=== PATIENT | female | born 1965 | race Caucasian/White ===

== ENCOUNTER 2016-08-06 01:49 | Observation (INO) | payer OTHER ==
[~2016-08-06] VITALS: Ht 162.6 cm; Wt 117.5 kg
[2016-08-06] VITALS (8 sets, daily range): BP systolic 119–157; BP diastolic 64–93
[2016-08-06] MEDS ORDERED: ASPIRIN 81 MG CHEW (CHILDREN'S ASA) PO ONE (02:00)
[2016-08-06 02:28] LABS: BASOPHILS # (AUTO) 0.1 10^3/uL (0.0-0.1); BASOPHILS % (AUTO) 1 % (0-10); EOSINOPHILS # (AUTO) 0.3 10^3/uL (0.0-0.3); EOSINOPHILS % (AUTO) 2 % (0-10); LYMPHOCYTES # (AUTO) 4.4 X 10^3 (1.0-4.0); LYMPHOCYTES % (AUTO) 33 % (12-44); MEAN CORPUSCULAR HEMOGLOBIN 28 PG (25-34); MEAN CORPUSCULAR HGB CONC 33 G/DL (32-36); MEAN CORPUSCULAR VOLUME 86 FL (80-99); MEAN PLATELET VOLUME 11.1 FL (7.4-10.4); MONOCYTES # (AUTO) 0.7 X 10^3 (0.0-1.0); MONOCYTES % (AUTO) 5 % (0-12); NEUTROPHILS # (AUTO) 7.7 X 10^3 (1.8-7.8); NEUTROPHILS % (AUTO) 59 % (42-75); PLATELET COUNT 324 10^3/uL (130-400); RED BLOOD COUNT 5.05 10^6/uL (4.35-5.85); WHITE BLOOD COUNT 13.2 10^3/uL (4.3-11.0)
[2016-08-06 02:40] LABS: INR 0.9 (0.8-1.4); PROTHROMBIN TIME PATIENT 11.9 SEC (12.2-14.7)
[2016-08-06 03:02] LABS: ANION GAP 12 MMOL/L (5-14); BLOOD UREA NITROGEN 6 MG/DL (7-18); BUN/CREATININE RATIO 9; CARBON DIOXIDE 24 MMOL/L (21-32); CHLORIDE 104 MMOL/L (98-107); GFR ESTIMATED > 60; GLUCOSE 147 MG/DL (70-105); POTASSIUM 3.8 MMOL/L (3.6-5.0); SODIUM 140 MMOL/L (135-145)
[2016-08-06 03:03] LABS: ALANINE AMINOTRANSFERASE 25 U/L (0-55); ALBUMIN 3.9 G/DL (3.2-4.5); ASPARTATE AMINO TRANSFERASE 17 U/L (5-34); BILIRUBIN,TOTAL 0.2 MG/DL (0.1-1.0); CALCIUM 8.9 MG/DL (8.5-10.1); MAGNESIUM 2.3 MG/DL (1.8-2.4); MYOGLOBIN SERUM 20.3 NG/ML (10.0-92.0)
[2016-08-06] MEDS ORDERED: RX-NITROGLYCERIN 0.4 MG TAB BTL 25'S SL ONE (03:30)
--- NOTE | 2016-08-06 04:24 | ED Chest Pain ---
General Chief Complaint: Chest Pain Stated Complaint: CP Nursing Triage Note: pt reports chest pain 9/10 starting approx 4 1/2 hours ago. pt reports worsening pain with activity. pt amb into exam room without difficulty Nursing Sepsis Screen: No Definite Risk Source: patient Exam Limitations: no limitations History of Present Illness Time seen by provider: 01:58 Initial Comments This 50-year-old woman presents to the emergency room with complaints of chest pain that started around 22:30. It is somewhat positional and seems to be worse when she gets up and moves around. She has felt flushed during episodes of chest pain. The pain is constant at a low level but worse with movement and exertion. She reports it as a sharp pain in the left lateral chest. It is sometimes worse with inspiration. She denies nausea or vomiting. She has some mild lightheadedness. She smokes tobacco and is a diabetic. She denies any prior history of heart disease. She has not seen a physician since Dr. Elizabeth closed her clinic. She denies cough or fever. Allergies and Home Medications Allergies Coded Allergies: No Known Drug Allergies (Unverified , 08/06/16) Home Medications No Active Prescriptions or Reported Meds Review of Systems Constitutional: no symptoms reported EENTM: No Symptoms Reported Respiratory: See HPI Cardiovascular: See HPI Gastrointestinal: No Symptoms Reported Genitourinary: No Symptoms Reported Musculoskeletal: no symptoms reported Skin: no symptoms reported Psychiatric/Neurological: No Symptoms Reported Endocrine: No Symptoms Reported Past Krgcopp-Wtujiq-Cwaydr Hx Patient Social History Alcohol Use: Denies Use Recreational Drug Use: No Smoking Status: Current Everyday Smoker Type Used: Cigarettes 2nd Hand Smoke Exposure: Yes Recent Foreign Travel: No Contact w/Someone Who Travel: No Recent Infectious Disease Expo: No Recent Hopitalizations: No Immunizations Up To Date Tetanus Booster (TDap): Unknown Seasonal Allergies Seasonal Allergies: Yes Surgeries HX Surgeries: No Respiratory Hx Respiratory Disorders: Yes (Tobaccoism) Cardiovascular Hx Cardiac Disorders: No Neurological Hx Neurological Disorders: No Reproductive System : No Hx Reproductive Disorders: No Sexually Transmitted Disease: No Genitourinary Hx Genitourinary Disorders: No Gastrointestinal Hx Gastrointestinal Disorders: No Musculoskeletal Hx Musculoskeletal Disorders: No Endocrine Hx Endocrine Disorders: Yes Endocrine Disorders: Diabetes, Non-Insulin dep HEENT HX ENT Disorders: No Cancer Hx Cancer: No Psychosocial Hx Psychiatric Problems: No Integumentary HX Skin/Integumentary Disorder: No Blood Transfusions Hx Blood Disorders: Yes (Chronic leukocytosis) Family Medical History Significant Family History: Diabetes, Stroke, Other Conditions/Hx (Parkinson's disease) Physical Exam Vital Signs Vital Sign - Last 12Hours 08/06/16 01:53 Temp 97.7 Pulse 103 Resp 22 B/P (MAP) 170/101 Pulse Ox 95 O2 Delivery Room Air Capillary Refill : Less Than 3 Seconds General Appearance: No Apparent Distress, WD/WN HEENT: PERRL/EOMI, Normal ENT Inspection, Pharynx Normal Neck: Normal Inspection Respiratory: Chest Non Tender, Lungs Clear, Normal Breath Sounds, No Accessory Muscle Use, No Respiratory Distress Cardiovascular: Regular Rate, Rhythm, No Edema, No Murmur, Normal Peripheral Pulses Gastrointestinal: Normal Bowel Sounds, Non Tender, Soft Extremity: Normal Capillary Refill, Normal Inspection, Non Tender, No Calf Tenderness, No Pedal Edema, Other (Negative Ever) Neurologic/Psychiatric: Alert, Oriented x3, No Motor/Sensory Deficits, Normal Mood/Affect, rental representative II-XII Norm as Tested Skin: Normal Color, Warm/Dry Progress/Results/Core Measures Results/Orders Lab Results Laboratory Tests Test 08/06/16 02:16 08/06/16 02:26 Range/Units White Blood Count 13.2 H 4.3-11.0 10^3/uL Red Blood Count 5.05 4.35-5.85 10^6/uL Hemoglobin 14.2 11.5-16.0 G/DL Hematocrit 43 35-52 % Mean Corpuscular Volume 86 80-99 FL Mean Corpuscular Hemoglobin 28 25-34 PG Mean Corpuscular Hemoglobin Concent 33 32-36 G/DL Red Cell Distribution Width 14.0 10.0-14.5 % Platelet Count 324 130-400 10^3/uL Mean Platelet Volume 11.1 H 7.4-10.4 FL Neutrophils (%) (Auto) 59 42-75 % Lymphocytes (%) (Auto) 33 12-44 % Monocytes (%) (Auto) 5 0-12 % Eosinophils (%) (Auto) 2 0-10 % Basophils (%) (Auto) 1 0-10 % Neutrophils # (Auto) 7.7 1.8-7.8 X 10^3 Lymphocytes # (Auto) 4.4 H 1.0-4.0 X 10^3 Monocytes # (Auto) 0.7 0.0-1.0 X 10^3 Eosinophils # (Auto) 0.3 0.0-0.3 10^3/uL Basophils # (Auto) 0.1 0.0-0.1 10^3/uL Prothrombin Time 11.9 L 12.2-14.7 SEC INR Comment 0.9 0.8-1.4 Activated Partial Thromboplast Time 34 24-35 SEC Sodium Level 140 135-145 MMOL/L Potassium Level 3.8 3.6-5.0 MMOL/L Chloride Level 104 98-107 MMOL/L Carbon Dioxide Level 24 21-32 MMOL/L Anion Gap 12 5-14 MMOL/L Blood Urea Nitrogen 6 L 7-18 MG/DL Creatinine 0.70 0.60-1.30 MG/DL Estimat Glomerular Filtration Rate > 60 BUN/Creatinine Ratio 9 Glucose Level 147 H 70-105 MG/DL Calcium Level 8.9 8.5-10.1 MG/DL Magnesium Level 2.3 1.8-2.4 MG/DL Total Bilirubin 0.2 0.1-1.0 MG/DL Aspartate Amino Transf (AST/SGOT) 17 5-34 U/L Alanine Aminotransferase (ALT/SGPT) 25 0-55 U/L Alkaline Phosphatase 85 40-136 U/L Myoglobin 20.3 10.0-92.0 NG/ML Troponin I < 0.30 <0.30 NG/ML Total Protein 7.0 6.4-8.2 G/DL Albumin 3.9 3.2-4.5 G/DL D-Dimer 0.47 0.00-0.49 UG/ML My Orders Orders - MELLISA GUTIERREZ MD Chest 1 View, Ap/Pa Only (08/06/16:52) Ekg Tracing (08/06/16:52) Cbc With Automated Diff (08/06/16:52) Magnesium (08/06/16:52) Cardiac Profile 1 (08/06/16:52) Comprehensive Metabolic Panel (08/06/16:52) Myoglobin Serum (08/06/16:52) Protime With Inr (08/06/16:52) Partial Thromboplastin Time (08/06/16:52) O2 (4/27/17 01:52) Monitor-Rhythm Ecg Trace Only (08/06/16 01:52) Lipid Panel (08/07/16 06:00) Aspirin Chewable Tablet (Baby Aspirin Ch (08/06/16 02:00) Saline Lock/Iv-Start (08/06/16 01:52) Fibrin Degradation Products (08/06/16 02:28) Rx-Nitroglycerin Sl Tabs (Rx-Nitrostat S (08/06/16 03:30) Medications Given in ED Current Medications Medications Dose Ordered Sig/Rafat Route Start Time Stop Time Status Last Admin Dose Admin Aspirin 324 mg ONCE ONCE PO 08/06/16 02:00 08/06/16 02:01 DC 08/06/16 02:40 324 MG Nitroglycerin 0.4 mg UD ONCE SL 08/06/16 03:30 08/06/16 03:31 DC 08/06/16 03:33 0.4 MG Vital Signs/I&O Vital Sign - Last 12Hours 08/06/16 08/06/16 01:53 02:00 Temp 97.7 Pulse 103 Resp 22 B/P (MAP) 170/101 Pulse Ox 95 96 O2 Delivery Room Air Room Air Blood Pressure Mean: 124 Progress Note : Progress Note Patient was given aspirin. Lab and imaging failed to reveal any abnormalities. A dose of nitroglycerin decreased her chest pain. Patient's presentation was mixed with features of typical and atypical chest pain. However, because of her significant risk factors with smoking and diabetes, admission was felt necessary for cardiac rule out. Patient was agreeable. Leukocytosis was noted on labs, but patient states this is chronic. ECG Initial ECG Impression Date: Aug 06, 2016 Initial ECG Impression Time: 01:58 Initial ECG Rate: 102 Initial ECG Rhythm: S.Tach Comment Sinus tachycardia with no ST elevation or depression. No abnormal intervals or axis deviation. Diagnostic Imaging Diagonstic Imaging: Xray Plain Films/CT/US/NM/MRI: chest Comments Single view chest x-ray viewed by me. Report not yet available. No acute abnormalities appreciated. Departure Communication Time/Spoke to Admitting Phy: 04:[address] Alvarado Time/Spoke to Consulting Physi: 04:05 Communication/Consulting Dr. Reynolds Impression Impression: Primary Impression: Chest pain Qualified Codes: R07.9 - Chest pain, unspecified Disposition: 09 ADMITTED INPATIENT Condition: Improved Decision to Admit Reason: Admit from ER (General) Decision to Admit/Date: Aug 06, 2016 Time/Decision to Admit Time: 04:00 Departure-Patient Inst. Referrals: NO,LOCAL PHYSICIAN (PCP) Primary Care Physician Scripts No Active Prescriptions or Reported Meds MELLISA GUTIERREZ MD Aug 06, 2016 04:24
[2016-08-06] MEDS ORDERED: morphine INJ 4 MG/ML 1 ML (VIAL/SYRINGE) IV PRN (06:00)
[2016-08-06] MEDS ORDERED: NITROGLYCERIN SUBLINGUAL 0.4 MG TAB (NITROSTAT) SL PRN (06:00)
--- NOTE | 2016-08-06 07:38 | Consultation-Cardiology ---
HPI-Cardiology Cardiology Consultation Date of Consultation 08/06/16 Date of Admission Indication: Chest pain HPI 50 years old lady with history of tobaccoism, obesity, was in her usual state of health until yesterday when she started having chest pain described it as dull achiness on the left side of her chest radiating up to her shoulder, waxing and waning continue to worsen, did not improve after laying down, came in late at night to the emergency room and reported improvement after sublingual nitroglycerin. Patient was seen this morning, her poor that she is feeling better. No pain at this point. No shortness of breath or diaphoresis no palpitation, syncope or near syncopal episode has been having mild pedal edema on and off. Denied feeling sleepy during the day or falling asleep easily. Does not know if she snores at night. Home Medications & Allergies Allergies: Coded Allergies: No Known Drug Allergies (Unverified , 08/06/16) Home Medication List Reviewed: Yes EZV-Goubiu-Yaovbh Hx Patient Social History Marital Status: single Employed/Student: employed Alcohol Use: Denies Use Recreational Drug Use: No Smoking Status: Current Everyday Smoker Type Used: Cigarettes 2nd Hand Smoke Exposure: Yes Recent Foreign Travel: No Recent Infectious Disease Expo: No Recent Hopitalizations: No Physical Abuse Screen: No Sexual Abuse: No Immunizations Up To Date Tetanus Booster (TDap): Unknown Past Medical History no known past medical or surgical history Family Medical History Family Medical Hx noncontributory, no known premature coronary artery disease or sudden cardiac Constitutional: no symptoms reported, see HPI EENTM: no symptoms reported, see HPI Respiratory: see HPI, No cough, No dyspnea on exertion, No hemoptysis, No orthopnea, No phlegm, No short of breath, No stridor, No wheezing, No other Cardiovascular: see HPI, chest pain, edema, No Hx of Intervention, No palpitations, No syncope, No vascular heart diseas, No other Gastrointestinal: no symptoms reported, see HPI Genitourinary: no symptoms reported, see HPI Musculoskeletal: no symptoms reported, see HPI Skin: no symptoms reported, see HPI Psychiatric/Neurological: No Symptoms Reported, See HPI Reviewed Test Results Reviewed Test Results Lab Laboratory Tests Test 08/06/16 02:16 08/06/16 02:26 Range/Units White Blood Count 13.2 H 4.3-11.0 10^3/uL Red Blood Count 5.05 4.35-5.85 10^6/uL Hemoglobin 14.2 11.5-16.0 G/DL Hematocrit 43 35-52 % Mean Corpuscular Volume 86 80-99 FL Mean Corpuscular Hemoglobin 28 25-34 PG Mean Corpuscular Hemoglobin Concent 33 32-36 G/DL Red Cell Distribution Width 14.0 10.0-14.5 % Platelet Count 324 130-400 10^3/uL Mean Platelet Volume 11.1 H 7.4-10.4 FL Neutrophils (%) (Auto) 59 42-75 % Lymphocytes (%) (Auto) 33 12-44 % Monocytes (%) (Auto) 5 0-12 % Eosinophils (%) (Auto) 2 0-10 % Basophils (%) (Auto) 1 0-10 % Neutrophils # (Auto) 7.7 1.8-7.8 X 10^3 Lymphocytes # (Auto) 4.4 H 1.0-4.0 X 10^3 Monocytes # (Auto) 0.7 0.0-1.0 X 10^3 Eosinophils # (Auto) 0.3 0.0-0.3 10^3/uL Basophils # (Auto) 0.1 0.0-0.1 10^3/uL Prothrombin Time 11.9 L 12.2-14.7 SEC INR Comment 0.9 0.8-1.4 Activated Partial Thromboplast Time 34 24-35 SEC Sodium Level 140 135-145 MMOL/L Potassium Level 3.8 3.6-5.0 MMOL/L Chloride Level 104 98-107 MMOL/L Carbon Dioxide Level 24 21-32 MMOL/L Anion Gap 12 5-14 MMOL/L Blood Urea Nitrogen 6 L 7-18 MG/DL Creatinine 0.70 0.60-1.30 MG/DL Estimat Glomerular Filtration Rate > 60 BUN/Creatinine Ratio 9 Glucose Level 147 H 70-105 MG/DL Calcium Level 8.9 8.5-10.1 MG/DL Magnesium Level 2.3 1.8-2.4 MG/DL Total Bilirubin 0.2 0.1-1.0 MG/DL Aspartate Amino Transf (AST/SGOT) 17 5-34 U/L Alanine Aminotransferase (ALT/SGPT) 25 0-55 U/L Alkaline Phosphatase 85 40-136 U/L Myoglobin 20.3 10.0-92.0 NG/ML Troponin I < 0.30 <0.30 NG/ML Total Protein 7.0 6.4-8.2 G/DL Albumin 3.9 3.2-4.5 G/DL D-Dimer 0.47 0.00-0.49 UG/ML Physical Exam Vital Signs Vital Sign - Last 12Hours 08/06/16 01:53 Temp 97.7 Pulse 103 Resp 22 B/P (MAP) 170/101 Pulse Ox 95 O2 Delivery Room Air Capillary Refill : Less Than 3 Seconds General Appearance: No Apparent Distress, WD/WN Eyes: Bilateral Eye EOMI, Bilateral Eye Normal Inspection, Bilateral Eye PERRL HEENT: PERRL/EOMI, TMs Normal, Normal ENT Inspection, Pharynx Normal Neck: Full Range of Motion, Normal Inspection, Non Tender, Supple, Carotid Bruit Respiratory: Chest Non Tender, Lungs Clear, Normal Breath Sounds, No Accessory Muscle Use, No Respiratory Distress Cardiovascular: Regular Rate, Rhythm, No Edema, No Gallop, No JVD, No Murmur, Normal Peripheral Pulses Gastrointestinal: Normal Bowel Sounds, No Organomegaly, No Pulsatile Mass, Non Tender, Soft Back: Normal Inspection, No CVA Tenderness, No Vertebral Tenderness Extremity: Normal Capillary Refill, Normal Inspection, Normal Range of Motion, Non Tender, No Calf Tenderness, No Pedal Edema Neurologic/Psychiatric: Alert, Oriented x3, No Motor/Sensory Deficits, Normal Mood/Affect Skin: Normal Color, Warm/Dry Lymphatic: No Adenopathy A/P-Cardiology Admission Diagnosis chest pain nonspecific etiology Obesity Tobaccoism Hypertension Assessment/Plan Chest pain nonspecific etiology atypical in presentation, EKG did not show any acute abnormality, cardiac enzymes are negative. Patient is admitted and started on aspirin, currently feeling better, we discussed the management plan I recommended exercise stress test and echocardiogram. Continue to monitor cardiac enzymes. Dyspnea on exertion, probably secondary to her body habitus, encouraged weight loss and exercise, planning to evaluate exercise stress test. BMI 44, high risk for underlying sleep apnea, consider sleep study as an outpatient Hypertension, transient, blood pressure is better, continue to monitor Tobaccoism, educated on smoking cessation Clinical Quality Measures AMI/AHF: ASA po Prior to arrival: No DVT/VTE Risk/Contraindication: Risk Factor Score Per Nursin RFS Level Per Nursing on Admit: 3=High RAVINDER MONTALVO MD Aug 06, 2016 07:38
--- NOTE | 2016-08-06 07:55 | Diagnostic Imaging Report ---
CLINICAL INDICATION: Patient with chest pain and shortness of breath. Patient is a smoker. EXAM: Portable chest x-ray upright view. COMPARISONS: None. FINDINGS: Lungs/pleura: There is slight increased density in the left lung base which may represent atelectasis versus infiltrate. There is no pneumothorax. There is no pleural effusion. Mediastinum: Unremarkable. Pulmonary vasculature: Unremarkable. Heart: Unremarkable. Bones/extrathoracic soft tissue: Unremarkable. IMPRESSION: 1. There is slight increased density in the left lung base, which may represent atelectasis versus infiltrate. Chest x-ray two views would better evaluate, if clinically necessary. Dictated by: Dictated on workstation # [id number]
[2016-08-06] MEDS ORDERED: ASPIRIN E.C. 325 MG (ECOTRIN) TABLET PO SCH (09:00)
--- NOTE | 2016-08-06 10:46 | Short Stay Summary-Hospitalist ---
HPI History of Present Illness: HPI/Chief Complaint CC: Chest Pain HPI: This is a 50 yoWF pt presented to ER w/chest pain. She smokes cigarettes and has DM. Pt has not seen a physician since Dr. Elizabeth closed her clinic. Cardiology evaluated pt and intends to risk stratify. Patient Interview: Pt has not experienced more chest pain since being in the ER. Pt confirms that she has not seen another doctor since Dr. Elizabeth closed her clinic. Pt has worked at [employer] for 13 years. Pt confirms that she smokes and she has DM. Pt will have a stress test done per Dr. Reynolds. Physical exam stable Scribed by Alejandra Christianson under the direct supervision of Dr. Martines. Source: patient Exam Limitations: no limitations Date Seen 08/06/16 Attending Physician Tika Martines DO PCP No,Local Physician Referring Physician Date of Admission Aug 06, 2016 at 04:21 Home Medications & Allergies Home Medications Reviewed patient Home Medication Reconciliation Form Allergies Allergies Coded Allergies No Known Drug Allergies (Unverified08/06/16) Past Ntffxgh-Slugag-Rotvza Hx Patient Social History Marrital Status: single Employed/Student: employed Alcohol Use: Denies Use Recreational Drug Use: No Smoking Status: Current Everyday Smoker Type Used: Cigarettes 2nd Hand Smoke Exposure: Yes Physical Abuse Screen: No Sexual Abuse: No Recent Foreign Travel: No Contact w/other who traveled: No Recent Hopitalizations: No Recent Infectious Disease Expo: No Immunizations Up To Date Tetanus Booster (TDap): Unknown Seasonal Allergies Seasonal Allergies: Yes Surgeries HX Surgeries: No Respiratory Hx Respiratory Disorders: Yes (Tobaccoism) Cardiovascular Hx Cardiovascular Disorders: No Neurological Hx Neurological Disorders: No Reproductive System : No Hx Reproductive Disorders: No Sexually Transmitted Disease: No Genitourinary Hx Genitourinary Disorders: No Gastrointestinal Hx Gastrointestinal Disorders: No Musculoskeletal Hx Musculoskeletal Disorders: No Endocrine Hx Endocrine Disorders: Yes Endocrine Disorders: Diabetes, Non-Insulin dep HEENT HX ENT Disorders: No Cancer Hx Cancer: No Psychosocial Hx Psychiatric Problems: No Integumentary HX Skin/Integumentary Disorder: No Blood Transfusions Hx Blood Disorders: Yes (Chronic leukocytosis) Family Medical History Significant Family History: Diabetes, Stroke, Other Conditions/Hx (Parkinson's disease) Review of Systems Constitutional: see HPI EENTM: no symptoms reported Respiratory: short of breath Cardiovascular: chest pain Gastrointestinal: no symptoms reported Genitourinary: no symptoms reported Musculoskeletal: no symptoms reported Skin: no symptoms reported Psychiatric/Neurological: No Symptoms Reported All Other Systems Reviewed Negative Unless Noted: Yes Physical Exam Physical Exam Vital Signs Vital Sign - Last 12Hours 08/06/16 01:53 Temp 97.7 Pulse 103 Resp 22 B/P (MAP) 170/101 Pulse Ox 95 O2 Delivery Room Air Capillary Refill : Less Than 3 SecondsLess Than 3 Seconds General Appearance: No Apparent Distress, WD/WN, Obese Eyes: Bilateral Eye Normal Inspection, Bilateral Eye PERRL HEENT: PERRL/EOMI, Normal ENT Inspection, Pharynx Normal Neck: Full Range of Motion, Normal Inspection, Non Tender, Supple, Carotid Bruit Respiratory: Chest Non Tender, Lungs Clear, Normal Breath Sounds, No Accessory Muscle Use, No Respiratory Distress Cardiovascular: Regular Rate, Rhythm, No Edema, No Gallop, No JVD, No Murmur, Normal Peripheral Pulses Gastrointestinal: Normal Bowel Sounds, No Organomegaly, No Pulsatile Mass, Non Tender, Soft Back: Normal Inspection, No CVA Tenderness, No Vertebral Tenderness Extremity: Normal Capillary Refill, Normal Inspection, Normal Range of Motion, Non Tender, No Calf Tenderness, No Pedal Edema Neurologic/Psychiatric: Alert, Oriented x3, No Motor/Sensory Deficits, Normal Mood/Affect Skin: Normal Color, Warm/Dry Lymphatic: No Adenopathy Results Results/Procedures Lab Laboratory Tests 08/06/16 02:16 Short Stay Diagnosis Discharge Diagnosis-Short Stay Admission Diagnosis Assessment: Chest pain of unknown etiology but risk factors for ischemic source so will undergo stress test Morbid obesity Likely obstructive sleep apnea Diabetes noncompliant with treatment Smoker Final Discharge Diagnosis Assessment: Chest pain of unknown etiology but risk factors for ischemic source so will undergo stress test Morbid obesity Likely obstructive sleep apnea Diabetes noncompliant with treatment Smoker Conclusion Plan Plan: Establish w/local physician Stress test DC once ok by Cardiology smoking cessation Clinical Quality Measures AMI/AHF: ASA po Prior to arrival: No DVT/VTE Risk/Contraindication: Risk Factor Score Per Nursin RFS Level Per Nursing on Admit: 3=High TIKA MARTINES DO Aug 06, 2016 10:46
[2016-08-06] MEDS ORDERED: CATHETER FLUSH 10 ML SYR IV PRN (11:45)
--- NOTE | 2016-08-07 08:16 | STRESS TEST ---
DATE OF SERVICE: 08/06/2016 REFERRING PHYSICIAN: Dr. Alvarado INDICATION: Chest pain. Baseline heart rate is 80, baseline pressure is 121/64, baseline EKG sinus rhythm with no ischemic changes. In summary, the patient was injected with 10.58 mCi of technetium Myoview and the resting images were obtained. Then, the patient started exercising with the baseline heart rate, blood pressure and EKG mentioned above. At minute 2 and 30 seconds, the patient was injected with 31.1 mCi of technetium 99 Myoview. The patient was able to finish a total of 3 minutes 30 seconds on standard Khang protocol, achieving maximum heart rate of 149, which is 87% of maximum expected heart rate. With peak exercise level, blood pressure was 165/50. EKG was showing nondiagnostic changes. During recovery, heart rate and blood pressure returned to baseline and EKG returned to baseline. The resting and stress images were reviewed and compared in the short access, horizontal long access and vertical long access views. Review of the images showed breast attenuation affecting the quality of the images with mild decrease uptake at the basal to mid anteroseptum with subtle reversibility. SSS is 6. SDS 1. TID value is 1.12. On the gated images, the left ventricle appeared to be in normal size with normal contractility, calculated ejection fraction 61%. CONCLUSION: 1. Poor exercise tolerance. A total of 3 minutes 30 seconds on standard Khang protocol, total of 4.6 mets achieving 87% of maximal expected heart rate. 2. Appropriate heart rate and blood pressure response to exercise. Returned to baseline during recovery. 3. No ischemia or infarction on SPECT images with breast attenuation affecting the quality of the images, subtle abnormality at the basal to mid anteroseptum. 4. Normal left ventricular size with normal contractility, calculated ejection fraction of 61%. Job ID: [id number] DocumentID: [id number] Dictated Date: 08/06/2016 16:43:58 Traveling Buyer Date: 08/07/2016 07:47:25 Dictated By: RAVINDER MONTALVO MD
--- NOTE | 2016-08-07 10:50 | ECHOCARDIOGRAPHY REPORT ---
DATE OF SERVICE: 08/06/2016 REFERRING PHYSICIAN: Dr. Tika Alvarado INDICATION: Chest pain. MEASUREMENTS: LVID end diastolic 5.4. IVS thickness 1.0. LVPW thickness 1.0. Left atrial diameter 3.4. Ejection fraction 60%. FINDINGS: 1. Technically difficult study due to patient body habitus. 2. Left ventricle is normal in size with normal contractility, systolic function appears to be normal. Estimated ejection fraction 60%. 3. Left atrium is normal in size. No clot or thrombus were seen within the left atrium. 4. The right atrium and right ventricle are normal in size. No clot or thrombus were seen within the right side. 5. Mitral valve is normal in morphology with mild mitral regurgitation noted by color Doppler flow. No mitral valve prolapse, no mitral valve stenosis. 6. Aortic valve is normal in morphology with normal opening and closing pattern. No significant aortic stenosis or regurgitation was seen. 7. Tricuspid valve is normal in morphology with mild tricuspid regurgitation noted by color Doppler flow. Doppler across tricuspid valve estimated pulmonary artery pressure of 8 plus right atrial pressure. 8. Pulmonic valve is functioning normally. 9. No pericardial effusion. CONCLUSION: 1. Normal left ventricular size and systolic function. Estimated ejection fraction is 60%. 2. Mild mitral and tricuspid regurgitation. 3. Estimated pulmonary artery pressure of 15 mmHg. Job ID: [id number] DocumentID: [id number] Dictated Date: 08/06/2016 17:09:55 [employer] Java Developer Date: 08/07/2016 08:48:15 Dictated By: RAVINDER MONTALVO MD
== END 2016-08-06 16:58 | disposition home or self-care (01) ==
LOC: EDUNIT# 01:49 → ER 01:52 → UNDOADMOB 04:21 → 4TH 04:21
PROVIDERS: ADMIT Internal Medicine; ATTEND Internal Medicine
DX: R07.9 Chest pain, unspecified (principal); E66.01 Morbid (severe) obesity due to excess calories; Z68.41 Body mass index [BMI] 40.0-44.9, adult; E11.9 Type 2 diabetes mellitus without complications; F17.210 Nicotine dependence, cigarettes, uncomplicated; R03.0 Elevated blood-pressure reading, without diagnosis of hypertension
CPT/HCPCS: 36415; 71010; 78452; 80053; 83735; 83874; 84484; 85025; 85379; 85610; 85730; 93005; 93017; 93041; 93306; 99211; G0378